=== PATIENT | male | born 1965 | race Caucasian/White ===

== ENCOUNTER 2020-02-17 06:41 | Observation (INO) ==
[2020-02-17 07:08] LABS: Hematocrit 49.3 % (37.5-50.1); Hemoglobin 16.8 g/dL (12.9-16.9); Immature Granulocytes % 0.4 % (0-4); Lymphocytes % 17.9 %; Mean Corpuscular HGB Conc 34.1 g/dL (31.6-35.5); Mean Corpuscular Hemoglobin 32.7 pg (28.0-33.3); Mean Corpuscular Volume 95.9 fL (83.0-100.0); Mean Platelet Volume 10.2 fL (9.4-12.4); Platelet Count 296 K/mcL (140-400); Red Blood Count 5.14 M/mcL (4.19-5.50); Red Cell Distribution Width 12.5 % (11.5-14.5); Segmented Neutrophils % 69.1 %; White Blood Count 11.5 K/mcL (4.3-11.1)
[2020-02-17 07:09] LABS: Basophils # 0.1 K/mcL (0.0-0.2); Basophils % 0.8 %; Eosinophils # 0.2 K/mcL (0.0-0.6); Eosinophils % 1.6 %; Lymphocytes # 2.1 K/mcL (0.6-4.6); Monocytes # 1.2 K/mcL (0.0-1.3); Monocytes % 10.2 %
[2020-02-17 07:12] LABS: Activated Partial Thrombo Time 39.8 Seconds (26.0-36.0); INR 1.2; Prothrombin Time 13.3 Seconds (9.4-12.1)
[2020-02-17 07:25] LABS: Troponin I < 0.03 ng/mL (< 0.04)
[2020-02-17 07:33] LABS: BUN/Creatinine Ratio 18 (6-26); Blood Urea Nitrogen 15 mg/dL (6-20); Calcium 10.1 mg/dL (8.6-10.3); Carbon Dioxide 24 mEq/L (23-29); Chloride 99 mEq/L (98-107); Glucose 114 mg/dL (70-105); Osmolality,Calculated 278 (280-300); Potassium 4.1 mEq/L (3.5-5.1); Sodium 133 mEq/L (136-145); eGFR For African Americans > 60 (> 60); eGFR For Non-African Americans > 60 (> 60)
[2020-02-17] MEDS ORDERED: Naloxone 0.4 MG/ML INJ IVP PRN (10:15)
[2020-02-17] MEDS ORDERED: Isovue-370 500 ML BOTTLE IVP ONE (10:17)
[2020-02-17] MEDS ORDERED: Metoprolol 100 MG TABLET PO PRN (10:18)
[2020-02-17] MEDS ORDERED: Nitroglycerin 0.4 MG TAB.SUBL SL PRN (11:56)
[2020-02-17] MEDS ORDERED: 0.9 % Sodium Chloride 500 ML IVC SCH (12:00)
[2020-02-17 13:58] VITALS: BP 106/70
[2020-02-17 14:37] LABS: Chol/HDL Ratio 5.2 (0-4.9); Cholesterol 183 mg/dL (< 200); HDL Cholesterol 35 mg/dL (40-59); LDL Cholesterol,Calculated 131 mg/dL (0-99); Triglycerides 84 mg/dL (< 150)
[2020-02-17 14:59] LABS: Estimated Average Glucose 146 mg/dl
[2020-02-17] MEDS ORDERED: lisinopriL 20 MG TABLET PO SCH (21:00)
== END 2020-02-17 15:55 | disposition home or self-care (01) ==
LOC: 3BNU 06:41 → EMEROOARM 06:41 → 3BNU 11:51
PROVIDERS: ADMIT Pharmacist; ATTEND Pharmacist